=== PATIENT | male | born 1960 | race Caucasian/White ===

== ENCOUNTER → 2020-10-23 | Outpatient (CLI) | payer MEDICARE ==
[~2020-10-23] MED LIST: ASPI81TA45 PO; ATOR20TA37 PO; CEFD300C37 PO; SULF1TAB24 PO
== END | disposition home or self-care (01) ==
LOC: CVU 13:41
PROVIDERS: ATTEND Internal Medicine Cardiovascular Disease
DX: I73.9 Peripheral vascular disease, unspecified (principal); M79.606 Pain in leg, unspecified; I10 Essential (primary) hypertension; E78.5 Hyperlipidemia, unspecified
CPT/HCPCS: 93922